=== PATIENT | male | born 1995 | race African-American/Black ===

== ENCOUNTER 2018-05-09 19:02 | Emergency (ER) | payer SELFPAY ==
[~2018-05-09] VITALS: Ht 185.4 cm; Wt 128.0 kg
[2018-05-09] MEDS ORDERED: KETOROLAC 60MG/2ML VIAL IM ONE (23:00)
[2018-05-09] MEDS ORDERED: ETOMIDATE 2MG/ML 10ML VIAL IV ONE (23:00)
[2018-05-10 01:10] VITALS: BP 153/98
== END 2018-05-10 04:00 | disposition home or self-care (01) ==
LOC: ER 19:02
DX: S43.004A Unspecified dislocation of right shoulder joint, initial encounter (principal); X58.XXXA Exposure to other specified factors, initial encounter; Y93.89 Activity, other specified; Y92.89 Other specified places as the place of occurrence of the external cause; Y99.8 Other external cause status
CPT/HCPCS: 23655; 73030; 96372; 99285; J1885; J3490; 99284; A4565